=== PATIENT | male | born 1945 | race Caucasian/White ===

== ENCOUNTER 2020-10-01 02:16 | Observation (INO) | payer MEDICARE ==
[2020-10-01] MEDS ORDERED: Meclizine HCl 25 MG TAB ONE (02:46)
[2020-10-01 04:37] LABS: Bacteria/HPF None Seen HPF (None Seen); Bilirubin Negative (Negative); Blood, Urine Trace (Negative); Clarity Clear (Clear); Glucose, Urine (Dipstick) 100 mg/dL (Negative); Ketone, Urine Negative (Negative); Leukocyte Negative Leu/uL (Negative); Nitrite Negative (Negative); Protein, Urine (Dipstick) Negative (Neg-Trace); Specific Gravity, Urine 1.014 (1.002-1.036); Squamous Epithelial None Seen HPF (0-3); Urobilinogen Normal mg/dL (Less than 2); WBC/HPF 0-3 HPF (0-3)
[2020-10-01 04:52] LABS: #Basophils 0.1 thou/uL (0.0-0.2); #Eosinphils 0.1 thou/uL (0.0-0.7); #Lymphocytes 1.8 thou/uL (1.20-3.40); #Monocytes 0.7 thou/uL (0.11-0.59); #Neutrophils 8.5 thou/uL (1.40-6.50); %Basophils 0.6 % (0.0-1.0); %Eosinophils 0.6 % (0.0-10.0); %Lymphocytes 16.4 % (21.0-51.0); %Monocytes 6.6 % (0.0-10.0); %Neutrophils 75.8 % (42.0-75.0); Hemoglobin 14.8 g/dL (14.0-18.0); Mean Corpuscular HGB CONC 33.3 g/dL (32.0-36.0); Mean Corpuscular Hemoglobin 30.4 pg (27.0-31.0); Mean Corpuscular Volume 91.3 fL (78.0-98.0); Platelet Count 321 thou/uL (130-400); RBC Distribution Width 11.8 % (11.5-14.5); Red Blood Cell (RBC) Count 4.87 mill/uL (4.70-6.10); White Blood Cell (WBC) Count 11.2 thou/uL (4.8-10.8)
[2020-10-01 05:13] LABS: ALT (SGPT) 15 U/L (8-55); AST (SGOT) 17 U/L (5-34); Albumin 3.8 g/dL (3.4-4.8); Alkaline Phosphatase 70 U/L (40-110); Anion Gap 15 mmol/L (10-20); BUN (Urea Nitrogen) 18 mg/dL (8.4-25.7); Bilirubin, Total 0.7 mg/dL (0.2-1.2); Calc. Creatinine Clearance 0 mL/min (70-130); Calcium 9.3 mg/dL (7.8-10.44); Carbon Dioxide 22 mmol/L (23-31); Chloride 104 mmol/L (98-107); Globulin 3.2 g/dL (2.4-3.5); Glucose 157 mg/dL (83-110); Potassium 3.7 mmol/L (3.5-5.1); Sodium 137 mmol/L (136-145)
[2020-10-01 05:36] LABS: CKMB 1.1 ng/mL (0-6.6)
[2020-10-01] MEDS ORDERED: Aspirin Chewable 81 MG TAB ONE (05:58)
[2020-10-01] MEDS ORDERED: Ondansetron ODT 4 MG TAB SL PRN (07:15)
[2020-10-01] MEDS ORDERED: Sodium Chloride 0.9% 1,000 ML IV SCH (07:15)
[2020-10-01] MEDS ORDERED: Acetaminophen 325 MG TAB PO PRN (07:15)
[2020-10-01] MEDS ORDERED: Ondansetron PF 4 MG/2 ML Vial IVP PRN (07:15)
[2020-10-01 08:06] VITALS: BMI 32.7
[2020-10-01] MEDS ORDERED: hydrALAZINE 20 MG/ML VIAL SLOW IVP PRN (08:09)
[2020-10-01] MEDS ORDERED: Enoxaparin Sodium 40 MG/0.4 ML SYRINGE SC SCH (09:00)
[2020-10-01] MEDS: Aspirin 81 mg Enteric Coated Tablet PO SCH (09:22)
[2020-10-01] MEDS ORDERED: Meclizine HCl 12.5 MG TAB PO PRN (15:08)
[2020-10-01] MEDS ORDERED: Melatonin 3 MG TAB PO PRN (15:30)
[2020-10-01] MEDS: Sotalol HCl 80 MG TAB PO SCH (20:52)
[2020-10-01] MEDS: hydrALAZINE 25 MG TAB PO SCH (20:52)
[2020-10-01] MEDS: Pregabalin 75 MG CAP PO SCH (20:52)
[2020-10-01] MEDS: Metoprolol Tartrate 25 MG TAB PO SCH (20:52)
[2020-10-01] MEDS: Apixaban 5 MG TAB PO SCH (20:54)
[2020-10-01] MEDS: Fish Oil 1,000 MG CAP PO SCH (20:54)
[2020-10-01] MEDS: Lorazepam 1 MG TAB PO SCH (20:54)
[2020-10-02 05:01] LABS: Hemoglobin 14.1 g/dL (14.0-18.0); Platelet Count 278 thou/uL (130-400)
[2020-10-02 05:30] LABS: Cardiac Risk 2.9 (Less than 4.5)
[2020-10-02 07:38] VITALS: TEMP 97.8
[2020-10-02] MEDS ORDERED: metFORMIN XR 500 MG TAB PO SCH (08:00)
[2020-10-02] MEDS: Aspirin 81 mg Enteric Coated Tablet PO SCH (08:39)
[2020-10-02] MEDS: Apixaban 5 MG TAB PO SCH (08:39)
[2020-10-02] MEDS: Pregabalin 75 MG CAP PO SCH (08:40)
[2020-10-02] MEDS: hydrALAZINE 25 MG TAB PO SCH (08:40)
[2020-10-02] MEDS: Fish Oil 1,000 MG CAP PO SCH (08:40)
[2020-10-02] MEDS: Lorazepam 1 MG TAB PO SCH (08:40)
[2020-10-02] MEDS: Metoprolol Tartrate 25 MG TAB PO SCH (08:40)
[2020-10-02] MEDS: Sotalol HCl 80 MG TAB PO SCH (08:41)
[2020-10-02] MEDS ORDERED: Hydrochlorothiazide 25 MG TAB PO SCH (09:00)
[2020-10-02 16:45] VITALS: BP 158/76
== END 2020-10-02 11:25 | disposition home or self-care (01) ==
LOC: ERS 02:16 → 2SE 05:58
PROVIDERS: ADMIT Student in an Organized Health Care Education/Training Program; ATTEND Internal Medicine
DX: H81.10 Benign paroxysmal vertigo, unspecified ear (principal); N17.9 Acute kidney failure, unspecified; I48.21 Permanent atrial fibrillation; I11.9 Hypertensive heart disease without heart failure; G47.30 Sleep apnea, unspecified; E11.9 Type 2 diabetes mellitus without complications; Z79.01 Long term (current) use of anticoagulants; Z79.84 Long term (current) use of oral hypoglycemic drugs; Z79.899 Other long term (current) drug therapy; Z88.8 Allergy status to other drugs, medicaments and biological substances
CPT/HCPCS: 70450; 70551; 80053; 80061; 82553; 82565; 84484; 85014; 85018; 85025; 85049; 93005; 96372; 97139; 99285; G0378 ×3; 36415; 81003; 81015; J1650

== ENCOUNTER 2025-06-15 09:24 | Outpatient (CLI) | payer MEDICARE ==
[2025-06-15 10:08] LABS: #Basophils 0.18 10x3/uL (0.0-0.2); #Eosinophils 0.47 10x3/uL (0.0-0.7); #Monocytes 1.01 10x3/uL (0.11-0.59); #Neutrophils 4.60 10x3/uL (1.40-6.50); %Basophils 2.1 % (0.0-1.0); %Eosinophils 5.6 % (0.0-10.0); %Lymphocytes 25.3 % (21.0-51.0); %Monocytes 12.0 % (0.0-10.0); %Neutrophils 54.6 % (42.0-75.0); Hematocrit 47.7 % (42.0-52.0); Hemoglobin 15.3 g/dL (14.0-18.0); Mean Corpuscular Hemoglobin 29.4 pg (27.0-31.0); Mean Corpuscular Volume 91.7 fL (78.0-98.0); Platelet Count 317 10x3/uL (130-400); Red Blood Cell (RBC) Count 5.20 mill/uL (4.70-6.10); White Blood Cell (WBC) Count 8.42 10x3/uL (4.8-10.8)
[2025-06-15 10:23] LABS: INR-International Normal Ratio 1.1; Prothrombin Time 13.8 sec (12.0-14.7)
[2025-06-15 10:41] LABS: ALT (SGPT) 13 U/L (Less than 45); AST (SGOT) 17 U/L (11-34); Albumin 3.7 g/dL (3.1-4.5); Alkaline Phosphatase 74 U/L (40-110); Anion Gap 14 mmol/L (10-20); BUN (Urea Nitrogen) 21 mg/dL (8.4-25.7); Bilirubin, Total 0.7 mg/dL (0.3-1.2); Calc. Creatinine Clearance 0 mL/min (70-130); Calcium 9.5 mg/dL (7.8-10.44); Carbon Dioxide 25 mmol/L (23-31); Chloride 112 mmol/L (98-107); Globulin 3.7 g/dL (2.4-3.5); Glucose 115 mg/dL (83-110); Potassium 4.2 mmol/L (3.5-5.1); Sodium 147 mmol/L (136-145)
== END 2025-06-15 09:25 | disposition home or self-care (01) ==
LOC: LABBT 09:24
PROVIDERS: ATTEND Orthopaedic Surgery
DX: Z01.818 Encounter for other preprocedural examination (principal); M17.12 Unilateral primary osteoarthritis, left knee
CPT/HCPCS: 80053; 85025; 85610; 87081

== ENCOUNTER 2025-06-15 09:59 | Outpatient (CLI) | payer MEDICARE | END 2025-06-15 10:00 | disposition home or self-care (01) | LOC: CT 09:59 | PROVIDERS: ATTEND Orthopaedic Surgery | DX: Z01.818 Encounter for other preprocedural examination (principal); M17.12 Unilateral primary osteoarthritis, left knee ==

== ENCOUNTER 2025-06-22 05:26 | Inpatient (IN) | payer MEDICARE ==
[2025-06-15 09:30] VITALS: BMI 34.0
[2025-06-22] MEDS ORDERED: VANCOMYCIN 2 GRAM/400 ML BAG 400 ML ONE (06:21)
[2025-06-22] MEDS ORDERED: Tranexamic Acid 1,000 MG/10 ML VIAL ONE (06:21)
[2025-06-22] MEDS ORDERED: Bupivacaine 0.25% HCL 30 ML VIAL ONE (06:29)
[2025-06-22] MEDS ORDERED: fentaNYL PF 100 MCG/2 ML SYRINGE ONE (06:32)
[2025-06-22] MEDS ORDERED: Lidocaine 1% PF 5 ML VIAL ONE (06:33)
[2025-06-22] MEDS ORDERED: Ondansetron PF 4 MG/2 ML Vial ONE (06:33)
[2025-06-22] MEDS ORDERED: Lidocaine 2% 6 ML (Jelly) SYR ONE (06:34)
[2025-06-22] MEDS ORDERED: Sevoflurane 250 ML INH ANEST BOTTLE ONE (06:36)
[2025-06-22] MEDS ORDERED: diphenhydrAMINE 25 MG CAP PO PRN (06:50)
[2025-06-22] MEDS ORDERED: Ondansetron PF 4 MG/2 ML Vial IVP PRN ×2 (06:50→07:15)
[2025-06-22] MEDS ORDERED: Acetaminophen 325 MG TAB PO PRN (06:50)
[2025-06-22] MEDS ORDERED: Ropivacaine 0.2% 550 ML 550 ML NERVE BLCK SCH (07:15)
[2025-06-22] MEDS ORDERED: PROPOFOL 200 MG/20 ML VIAL ONE (07:18)
[2025-06-22] MEDS ORDERED: Ropivacaine 0.5% HCl/PF (150 MG/30 ML VIAL) ONE (07:25)
[2025-06-22] MEDS ORDERED: Non-Formulary Item 1 EACH (Pregabalin [Lyrica] 150 MG Cap) PO SCH (09:00)
[2025-06-22] MEDS ORDERED: Non-Formulary Item 1 EACH (Hydralazine Hcl [Hydralazine Hcl] 50 MG Tablet) PO SCH (09:00)
[2025-06-22] MEDS ORDERED: Cholecalciferol 1,000 UNITS (25 MCG) TAB PO SCH (12:00)
[2025-06-22] MEDS ORDERED: Glucagon 1 MG/ML KIT IM PRN (12:34)
[2025-06-22] MEDS ORDERED: Dextrose 50% Abboject 50 ML SYRINGE SLOW IVP PRN (12:34)
[2025-06-22] MEDS: Aspirin 81 mg Enteric Coated Tablet PO SCH (13:57)
[2025-06-22] MEDS: Ferrous Gluconate 324 MG TAB PO SCH (13:57)
[2025-06-22] MEDS: Multivitamin W/ Minerals 1 TAB PO SCH (13:58)
[2025-06-22] MEDS: Pantoprazole 40 MG DR.TAB PO SCH (13:59)
[2025-06-22] MEDS: Senokot S 8.6-50 MG TAB PO SCH (14:01)
[2025-06-22] MEDS: Cholecalciferol 1,000 UNITS (25 MCG) TAB PO SCH (14:39)
[2025-06-22] MEDS ORDERED: Non-Formulary Item 1 EACH (Atorvastatin Calcium [Lipitor] 80 MG Tablet) PO SCH (21:00)
[2025-06-22] MEDS ORDERED: ZINC AMINO ACID CHELATE PO SCH (21:00)
[2025-06-22] MEDS ORDERED: Non-Formulary Item 1 EACH (Melatonin [Melatonin] 1 MG Tablet) PO SCH (21:00)
[2025-06-22] MEDS ORDERED: Non-Formulary Item 1 EACH (Trazodone Hcl [Trazodone Hcl] 100 MG Tablet) PO SCH (21:00)
[2025-06-22] MEDS: Melatonin 3 MG TAB PO SCH (22:35)
[2025-06-22] MEDS: Magnesium Oxide 400 MG TAB PO SCH (22:36)
[2025-06-23 05:01] LABS: Hematocrit 39.8 % (42.0-52.0); Hemoglobin 13.3 g/dL (14.0-18.0); Mean Corpuscular Hemoglobin 29.7 pg (27.0-31.0); Mean Corpuscular Volume 88.8 fL (78.0-98.0); Platelet Count 267 10x3/uL (130-400); Red Blood Cell (RBC) Count 4.48 mill/uL (4.70-6.10); White Blood Cell (WBC) Count 15.46 10x3/uL (4.8-10.8)
[2025-06-23 05:38] LABS: Anion Gap 15 mmol/L (10-20); BUN (Urea Nitrogen) 27 mg/dL (8.4-25.7); Calc. Creatinine Clearance 77 mL/min (70-130); Calcium 8.9 mg/dL (7.8-10.44); Carbon Dioxide 19 mmol/L (23-31); Chloride 112 mmol/L (98-107); Glucose 175 mg/dL (83-110); Magnesium 1.9 mg/dL (1.6-2.6); Potassium 3.6 mmol/L (3.5-5.1); Sodium 142 mmol/L (136-145)
[2025-06-23] MEDS: HYDROcodone/Acetaminophen 10/325 mg Tablet PO PRN (09:08)
[2025-06-24] MEDS: HYDROcodone/Acetaminophen 10/325 mg Tablet PO PRN (00:23)
[2025-06-24 06:07] LABS: #Basophils 0.19 10x3/uL (0.0-0.2); #Eosinophils 0.85 10x3/uL (0.0-0.7); #Monocytes 2.53 10x3/uL (0.11-0.59); #Neutrophils 10.23 10x3/uL (1.40-6.50); %Basophils 1.2 % (0.0-1.0); %Eosinophils 5.2 % (0.0-10.0); %Lymphocytes 15.3 % (21.0-51.0); %Monocytes 15.4 % (0.0-10.0); %Neutrophils 62.3 % (42.0-75.0); Hematocrit 34.4 % (42.0-52.0); Hemoglobin 11.5 g/dL (14.0-18.0); Mean Corpuscular Hemoglobin 29.8 pg (27.0-31.0); Mean Corpuscular Volume 89.1 fL (78.0-98.0); Platelet Count 174 10x3/uL (130-400); Red Blood Cell (RBC) Count 3.86 mill/uL (4.70-6.10); White Blood Cell (WBC) Count 16.42 10x3/uL (4.8-10.8)
[2025-06-24 06:17] LABS: Anion Gap 12 mmol/L (10-20); BUN (Urea Nitrogen) 30 mg/dL (8.4-25.7); Calc. Creatinine Clearance 71 mL/min (70-130); Calcium 8.5 mg/dL (7.8-10.44); Carbon Dioxide 21 mmol/L (23-31); Chloride 110 mmol/L (98-107); Glucose 161 mg/dL (83-110); Potassium 4.1 mmol/L (3.5-5.1); Sodium 139 mmol/L (136-145)
[2025-06-25 05:37] LABS: Hematocrit 32.2 % (42.0-52.0); Hemoglobin 10.4 g/dL (14.0-18.0); Mean Corpuscular Hemoglobin 29.4 pg (27.0-31.0); Mean Corpuscular Volume 91.0 fL (78.0-98.0); Platelet Count 171 10x3/uL (130-400); Red Blood Cell (RBC) Count 3.54 mill/uL (4.70-6.10); White Blood Cell (WBC) Count 14.90 10x3/uL (4.8-10.8)
[2025-06-25 07:50] VITALS: BP 124/79; TEMP 98.6
== END 2025-06-25 11:17 | DRG 470 ==
LOC: SDC 05:26 → SURG A 10:58 → SDC 14:20 → SURG A 14:20 → OBSVTOIN 06-23 13:57
PROVIDERS: ADMIT Orthopaedic Surgery; ATTEND Orthopaedic Surgery
PROC: 0SRD0JA Replacement of Left Knee Joint with Synthetic Substitute, Uncemented, Open Approach (ICD-10-PCS; principal; 2025-06-22)
PROC: 3E03329 Introduction of Other Anti-infective into Peripheral Vein, Percutaneous Approach (ICD-10-PCS; 2025-06-22)
DX: M17.12 Unilateral primary osteoarthritis, left knee (principal); I48.0 Paroxysmal atrial fibrillation; N40.0 Benign prostatic hyperplasia without lower urinary tract symptoms; E78.5 Hyperlipidemia, unspecified; G47.33 Obstructive sleep apnea (adult) (pediatric); E66.812 Obesity, class 2; F41.9 Anxiety disorder, unspecified; E11.40 Type 2 diabetes mellitus with diabetic neuropathy, unspecified; I12.9 Hypertensive chronic kidney disease with stage 1 through stage 4 chronic kidney disease, or unspecified chronic kidney disease; N18.30 Chronic kidney disease, stage 3 unspecified; E11.22 Type 2 diabetes mellitus with diabetic chronic kidney disease; Z60.2 Problems related to living alone; Z68.34 Body mass index [BMI] 34.0-34.9, adult; Z98.890 Other specified postprocedural states
CPT/HCPCS: 36415; 36416; 80048; 83735; 85027; 93005; 93010; A4306; C1713; C1776; C1889; J0169; J0665; J1100; J1815; J2405; J2704; J2795; J3010; J3375